=== PATIENT | female | born 1990 | race Caucasian/White ===

== ENCOUNTER 2018-02-21 12:36 | Inpatient (IN) | payer OTHER ==
[~2018-02-21 12:36] MED LIST: MIDAZOLAM 1 MG/ML 2 ML INJ; PROPOFOL 200 MG INJ
[2018-02-21 13:04] LABS: ADD MAN DIFF? NO
[2018-02-21 13:06] LABS: WHITE BLOOD COUNT 7.8 10^3/ul (4.8-10.8)
[2018-02-21 13:06] LABS: BASOPHILS % 0.3 % (0.0-2.0); EOSINOPHILS # 0.1 10^3/ul (0.0-0.5); EOSINOPHILS % 1.3 % (0.0-7.0); HEMATOCRIT 33.3 % (37.0-47.0); HEMOGLOBIN 11.4 g/dl (12.0-16.0); LYMPHOCYTES # 1.8 10^3/ul (0.8-2.9); LYMPHOCYTES % 23.3 % (15.0-51.0); MEAN CORPUSCULAR HEMOGLOBIN 29.7 pg (29.0-33.0); MEAN CORPUSCULAR HGB CONC 34.2 g/dl (32.0-37.0); MEAN CORPUSCULAR VOLUME 86.7 fl (82.0-101.0); MEAN PLATELET VOLUME 10.5 fl (7.4-10.4); MONOCYTE # 0.6 10^3/ul (0.3-0.9); MONOCYTES % 7.2 % (0.0-11.0); NEUTROPHIL # 5.3 10^3/ul (1.6-7.5); NEUTROPHILS % 67.8 % (39.0-77.0); PLATELET COUNT 232 10^3/UL (140-415); RED BLOOD COUNT 3.84 10^6/ul (4.20-5.40); RED CELL DISTRIBUTION WIDTH 12.7 % (11.5-14.5)
[2018-02-21 13:24] LABS: ALKALINE PHOSPHATASE 221 IU/L (42-121); ANION GAP 10 (8-16); ASPARTATE AMINO TRANSFERASE 18 IU/L (15-46); BILIRUBIN,INDIRECT 0.2 mg/dl (0-1.1); BILIRUBIN,TOTAL 0.2 mg/dl (0.2-1.3); BLOOD UREA NITROGEN 9 mg/dl (7-20); CALCIUM 8.1 mg/dl (8.4-10.2); CARBON DIOXIDE 21 mmol/L (21-31); CHLORIDE 111 mmol/L (97-110); CREATININE 0.47 mg/dl (0.44-1.00); GLUCOSE 110 mg/dl (70-220); POTASSIUM 3.8 mmol/L (3.5-5.1); SODIUM 138 mmol/L (135-144); TOTAL PROTEIN 6.3 g/dl (6.1-8.1); URIC ACID 5.4 mg/dl (3.1-7.9)
[2018-02-21 13:26] LABS: INR 0.93; PROTIME 12.5 Sec (11.9-14.9)
[2018-02-21 13:27] LABS: PARTIAL THROMBOPLASTIN TIME 28.7 Sec (23.0-35.0)
[2018-02-21 13:43] LABS: ALANINE AMINOTRANSFERASE 19 IU/L (13-69)
[2018-02-21 13:51] LABS: ADD UMIC YES; UR ASCORBIC ACID 40 mg/dL (NEGATIVE); UR BACTERIA FEW /HPF (NONE SEEN); UR BILIRUBIN (Dip) NEGATIVE (NEGATIVE); UR BLOOD (Dip) NEGATIVE (NEGATIVE); UR CLARITY CLEAR (CLEAR); UR COLOR YELLOW (YELLOW); UR GLUCOSE (Dip) NEGATIVE (NEGATIVE); UR KETONES (Dip) NEGATIVE (NEGATIVE); UR LEUKOCYTE ESTERASE (Dip) 1+ Leu/ul (NEGATIVE); UR MUCUS FEW /HPF (NONE SEEN); UR NITRITE (Dip) NEGATIVE (NEGATIVE); UR RBC 1 /HPF (0-5); UR SPECIFIC GRAVITY (Dip) 1.026 (1.003-1.030); UR SQUAMOUS EPITHELIAL CELL FEW /HPF (FEW); UR TOTAL PROTEIN (Dip) 1+ mg/dl (NEGATIVE); UR UROBILINOGEN (Dip) NEGATIVE (NEGATIVE); UR WBC 10 /HPF (0-5)
[2018-02-21] MEDS ORDERED: METHYLERGONOVINE 0.2 MG INJ IM ×2 (14:30→23:00)
[2018-02-21] MEDS ORDERED: MISOPROSTOL 200 MCG TAB PR ×2 (14:30→23:00)
[2018-02-21] MEDS ORDERED: CARBOPROST 250 MCG INJ IM ×2 (14:30→23:00)
[2018-02-21] MEDS ORDERED: OXYTOCIN 30 UNITS/LR 500 ML IV ×2 (14:30→23:00)
[2018-02-21 15:17] LABS: RAPID PLASMA REAGIN NONREACTIVE (NR)
[2018-02-21] MEDS: LACTATED RINGER'S 1,000 ML IV (15:24)
[2018-02-21] MEDS ORDERED: morphine SULFATE/PF (10 MG/10 ML) INJ (15:35)
[2018-02-21] MEDS ORDERED: BUPIVACAINE 0.75%/DEXT (SPINAL) 2 ML INJ (15:36)
[2018-02-21] MEDS ORDERED: OXYTOCIN 10 UNIT INJ (15:38)
[2018-02-21] MEDS: METOCLOPRAMIDE 10 MG INJ IV (16:02)
[2018-02-21] MEDS: ONDANSETRON 4 MG INJ IV ×2 (16:02→20:32)
[2018-02-21] MEDS: FAMOTIDINE 20 MG INJ IV (16:02)
[2018-02-21] MEDS ORDERED: NALOXONE (0.4 MG/ML) INJ IV (18:30)
[2018-02-21] MEDS ORDERED: DIPHENHYDRAMINE 50 MG INJ IV (18:30)
[2018-02-21] MEDS ORDERED: ONDANSETRON 4 MG INJ IV (18:30)
[2018-02-21] MEDS ORDERED: ZOLPIDEM 5 MG TAB PO (18:30)
[2018-02-21] MEDS ORDERED: HYDROmorphONE 1 MG/5 ML IV SYRINGE IV ×3 (18:30)
[2018-02-21] MEDS ORDERED: FENTAnyl 50 MCG/ML VIAL IV ×2 (18:30)
[2018-02-21] MEDS ORDERED: HYDROmorphONE 0.5 MG/0.5 ML SYG IV ×2 (18:30)
[2018-02-21] MEDS: CEFAZOLIN 2 GM/50 ML (PMX) 50 ML IV (19:30)
[2018-02-21] MEDS: OXYTOCIN 30 UNITS/LR 500 ML IV ×3 (19:30→22:43)
[2018-02-21] MEDS: KETOROLAC 30 MG INJ IV (20:31)
[2018-02-21] MEDS: DIPHENHYDRAMINE 50 MG INJ IV (22:16)
[2018-02-21] MEDS ORDERED: LANOLIN 7 GM TUBE TOP (23:00)
[2018-02-21] MEDS ORDERED: OXYCODONE/ACETAMINOPHEN (5/325) TAB PO ×2 (23:00)
[2018-02-21] MEDS: CEFAZOLIN 1 GM/50 ML (PMX) 50 ML IVPB (23:28)
[2018-02-22] MEDS: OXYTOCIN 30 UNITS/LR 500 ML IV ×5 (03:21→15:38)
[2018-02-22] MEDS: KETOROLAC 30 MG INJ IV ×2 (03:29→15:38)
[2018-02-22] MEDS: IBUPROFEN 600 MG TAB PO ×4 (06:00→18:00)
[2018-02-22] MEDS ORDERED: SENNA/DOCUSATE NA (8.6MG/50MG) TAB PO (09:00)
[2018-02-22 09:30] LABS: ADD MAN DIFF? NO
[2018-02-22] MEDS: SENNA/DOCUSATE NA (8.6MG/50MG) TAB PO ×2 (09:33→20:50)
[2018-02-22 09:34] LABS: WHITE BLOOD COUNT 11.5 10^3/ul (4.8-10.8)
[2018-02-22 09:34] LABS: BASOPHILS % 0.2 % (0.0-2.0); EOSINOPHILS % 0.2 % (0.0-7.0); HEMATOCRIT 28.6 % (37.0-47.0); HEMOGLOBIN 9.8 g/dl (12.0-16.0); LYMPHOCYTES # 1.7 10^3/ul (0.8-2.9); LYMPHOCYTES % 15.1 % (15.0-51.0); MEAN CORPUSCULAR HEMOGLOBIN 30.1 pg (29.0-33.0); MEAN CORPUSCULAR HGB CONC 34.3 g/dl (32.0-37.0); MEAN CORPUSCULAR VOLUME 87.7 fl (82.0-101.0); MEAN PLATELET VOLUME 10.8 fl (7.4-10.4); MONOCYTE # 0.7 10^3/ul (0.3-0.9); MONOCYTES % 5.6 % (0.0-11.0); NEUTROPHILS % 78.4 % (39.0-77.0); PLATELET COUNT 206 10^3/UL (140-415); RED BLOOD COUNT 3.26 10^6/ul (4.20-5.40); RED CELL DISTRIBUTION WIDTH 12.7 % (11.5-14.5)
[2018-02-22 10:07] LABS: ALANINE AMINOTRANSFERASE 25 IU/L (13-69); ALBUMIN 2.2 g/dl (3.3-4.9); ALBUMIN/GLOBULIN RATIO 0.78; ALKALINE PHOSPHATASE 158 IU/L (42-121); ANION GAP 8 (8-16); ASPARTATE AMINO TRANSFERASE 28 IU/L (15-46); BILIRUBIN,INDIRECT 0.3 mg/dl (0-1.1); BILIRUBIN,TOTAL 0.3 mg/dl (0.2-1.3); BLOOD UREA NITROGEN 7 mg/dl (7-20); CALCIUM 8.4 mg/dl (8.4-10.2); CARBON DIOXIDE 26 mmol/L (21-31); CHLORIDE 105 mmol/L (97-110); CREATININE 0.53 mg/dl (0.44-1.00); GLUCOSE 79 mg/dl (70-220); POTASSIUM 4.3 mmol/L (3.5-5.1); SODIUM 135 mmol/L (135-144)
[2018-02-22 21:12] LABS: COLLECTION PERIOD 24 hrs
[2018-02-22] MEDS: HYDROCODONE/APAP (5/325) TAB PO (21:23)
[2018-02-22 21:44] LABS: CREATININE,URINE RANDOM 109.83 mg/dl (20-320)
[2018-02-22 21:57] LABS: COLLECTION PERIOD 24 hrs
[2018-02-22 21:58] LABS: VOLUME 1100 ml/24hrs; VOLUME 1100 mls
[2018-02-22 21:59] LABS: CREATININE CLEARANCE 178.5 mls/min (84.0-162.0); SCRET 0.47 mg/dl (0.44-1.00)
[2018-02-22 23:55] LABS: HEPATITIS B SURFACE ANTIGEN NEGATIVE (NEGATIVE)
[2018-02-23] MEDS: IBUPROFEN 600 MG TAB PO ×5 (00:05→23:54)
[2018-02-23] MEDS: SENNA/DOCUSATE NA (8.6MG/50MG) TAB PO ×2 (09:17→21:08)
[2018-02-23] MEDS: HYDROCODONE/APAP (5/325) TAB PO ×2 (11:26→19:21)
[2018-02-24] MEDS: IBUPROFEN 600 MG TAB PO ×2 (05:52→13:02)
[2018-02-24] MEDS: SENNA/DOCUSATE NA (8.6MG/50MG) TAB PO (08:17)
[2018-02-24] MEDS: HYDROCODONE/APAP (5/325) TAB PO ×2 (08:18→13:03)
[2018-02-24] MEDS: DIPHTH/TET/ACEL PERTUSS (ADULT) 0.5 ML VIAL IM* (09:00)
== END 2018-02-24 16:45 | disposition home or self-care (01) | DRG 766 ==
LOC: OBT 12:36 → L-D 12:38 → OBT 14:12 → L-D 14:12 → PP1 22:00
PROC: 10D00Z1 Extraction of Products of Conception, Low, Open Approach (ICD-10-PCS; principal; 2018-02-21 16:30)
DX: O34.219 Maternal care for unspecified type scar from previous cesarean delivery (principal); O13.4 Gestational [pregnancy-induced] hypertension without significant proteinuria, complicating childbirth; Z3A.38 38 weeks gestation of pregnancy; Z37.0 Single live birth
CPT/HCPCS: 76815; 76818; 80053; 81001; 82575; 84156; 84560; 85025; 85384; 85610; 85730; 86592; 86850; 86900; 86901; 87340; 99464